=== PATIENT | female | born 1990 | race Caucasian/White ===

== ENCOUNTER 2023-11-08 13:33 | Outpatient (CLI) | payer BC, SELFPAY | END 2023-11-08 13:34 | disposition home or self-care (01) | LOC: NFLDREF 11-10 06:47 | PROVIDERS: Visit Provider Physician Assistant Medical | DX: R53.83 Other fatigue (principal) | CPT/HCPCS: 80053; 82306; 82607; 82728; 84443 ==

== ENCOUNTER 2024-03-27 14:15 | Outpatient (RCR) | payer BC, SELFPAY | END 2024-07-19 15:57 | disposition home or self-care (01) | PROVIDERS: PCP Physician Assistant Medical; Visit Provider Physician Assistant Medical | DX: M25.551 Pain in right hip (principal); G89.29 Other chronic pain; Z51.89 Encounter for other specified aftercare | CPT/HCPCS: 97110; 97140; 97161 ==

== ENCOUNTER 2024-06-28 11:16 | Outpatient (CLI) | payer BC, SELFPAY | END 2024-06-28 11:17 | disposition home or self-care (01) | LOC: FRMREF 11:21 | PROVIDERS: PCP Physician Assistant Medical; Visit Provider Obstetrics & Gynecology | DX: N92.0 Excessive and frequent menstruation with regular cycle (principal) | CPT/HCPCS: 84443 ==

== ENCOUNTER 2025-05-24 09:31 | Outpatient (CLI) | payer BC, SELFPAY ==
[2025-05-25 20:52] LABS: HPV Source Cervical/Vag
[2025-05-29 09:40] LABS: Pap Test Digital Imaging Done
== END 2025-05-24 09:32 | disposition home or self-care (01) ==
PROVIDERS: PCP Physician Assistant Medical; Visit Provider Physician Assistant Medical
DX: Z00.00 Encounter for general adult medical examination without abnormal findings (principal)
CPT/HCPCS: 80053; 80061; 84443; 87624; 87625; 88141; 88142; 88175